=== PATIENT | female | born 1990 | race American Indian/Alaskan Native ===

== ENCOUNTER 2017-03-28 13:42 | Emergency (ER) | payer OTHER ==
[2017-03-28 16:35] LABS: Basophils % (Auto) 0.5 % (0.0-1.8); Eosinophils % (Auto) 0.3 % (0.0-4.3); Hematocrit 35.6 % (30.3-42.9); Hemoglobin 11.7 gm/dl (10.1-14.3); Lymphocytes # (Auto) 1.1 K/mm3 (1.2-5.4); Lymphocytes % (Auto) 18.2 % (13.4-35.0); Mean Corpuscular HGB Conc 33 % (30-34); Mean Corpuscular Volume 77 fl (79-97); Monocytes # (Auto) 0.5 K/mm3 (0.0-0.8); Monocytes % (Auto) 7.3 % (0.0-7.3); Platelet Count 226 K/mm3 (140-440); Red Blood Count 4.61 M/mm3 (3.65-5.03); Red Cell Distribution Width 13.9 % (13.2-15.2)
[2017-03-28 16:54] LABS: BUN/Creatinine Ratio 8; Blood Urea Nitrogen 5 mg/dL (7-17); Calcium 9.3 mg/dL (8.4-10.2); Hemolysis Index 8
[2017-03-28 16:56] LABS: Mean Corpuscular Hemoglobin 25 pg (28-32)
[2017-03-28 16:58] LABS: Bilirubin,Urine NEG (Negative); Blood,Urine NEG (Negative); Color,Urine Yellow (Yellow); Mucus,Urine 3+ /HPF; Nitrite,Urine NEG (Negative); Protein,Urine <15 mg/dL mg/dL (Negative)
[2017-03-28 17:10] LABS: Amphetamine Screen,Urine PRESUMPTIVE NEGATIVE; Benzodiazepines Screen,Urine PRESUMPTIVE NEGATIVE; Cannabinoid Screen,Urine PRESUMPTIVE NEGATIVE; Cocaine Screen,Urine PRESUMPTIVE NEGATIVE; Methadone Screen,Urine PRESUMPTIVE NEGATIVE; Opiate Screen,Urine PRESUMPTIVE NEGATIVE
[2017-03-29] MEDS ORDERED: XYLOCAINE 1% MPF 5 mL INFILTRATI ONE (00:29)
[2017-03-29] MEDS ORDERED: ROCEPHIN IM ONE (00:29)
--- NOTE | 2017-03-29 00:38 | Emergency Department Report ---
ED Psych HPI - General Chief Complaint: Psych Stated Complaint: PSYCHE 1013 Time Seen by Provider: 03/29/17 00:25 Source: patient, police Mode of arrival: Ambulatory - History of Present Illness Initial Comments: 26-year-old female seen and clean [facility] [address] this morning she is on current depression meds but was feeling suicidal. They referred her here on a 1013 for suicidal ideation worsening major depression for medical clearance patient has no medical complaints of fever no abdominal pain no headache no stiff neck, chest pain no missed periods or vaginal bleeding or vaginal discharge past medical history was stated to be significant for schizoaffective and bipolar as well as depression MD Complaint: suicidal ideation, feels depressed -: days(s), unknown Associated Psychiatric Symptoms: depression, suicidal ideation Associated Symptoms: denies other symptoms. denies: confusion, headache, shortness of breath, nausea, vomiting, syncope, insomnia If Self Harm: admits thoughts of - Related Data Home Medications Medication Instructions Recorded Confirmed Last Taken Ferrous Sulfate [Ferrous Sulfate] 1 tsp PO DAILY 05/21/13 03/28/17 06/29/13 09: 00 Previous Rx's Medication Instructions Recorded Last Taken Type Pnv95/Ferrous Fumarate/FA 1 each PO QDAY #30 tablet 12/21/12 06/29/13 09:00 Rx [ Vitamins] Ferrous Sulfate [Feosol 325 MG tab] 325 mg PO BID #60 tablet 07/03/13 Unknown Rx Ibuprofen [Motrin 600 MG tab] 600 mg PO Q6HR #30 tablet 07/03/13 Unknown Rx Vit-Fe Fumar-FA [ 1 each PO QDAY #30 tablet 07/03/13 Unknown Rx Vitamin] metroNIDAZOLE [Flagyl] 500 mg PO BID #14 tablet 07/03/13 Unknown Rx Ibuprofen [Motrin] 600 mg PO Q8H PRN #30 tablet 07/15/14 Unknown Rx Ondansetron [Zofran Odt] 4 mg PO Q6H #14 tab.rapdis 07/15/14 Unknown Rx traMADol [Ultram] 50 mg PO Q6HR PRN #20 tablet 07/15/14 Unknown Rx Allergies Allergy/AdvReac Type Severity Reaction Status Date / Time No Known Allergies Allergy Verified 08/06/15 17:53 ED Review of Systems ROS: Stated complaint: PSYCHE 1013 Other details as noted in HPI Comment: All other systems reviewed and negative Constitutional: no symptoms reported. denies: diaphoresis, fever, malaise, weakness ENT: denies: dental pain, hearing loss, epistaxis Respiratory: denies: shortness of breath, SOB with exertion, SOB at rest, stridor, wheezing Cardiovascular: denies: chest pain, palpitations, dyspnea on exertion, orthopnea , edema, syncope, paroxysmal nocturnal dyspnea Gastrointestinal: denies: abdominal pain, nausea, vomiting, diarrhea, constipation, hematemesis, melena, hematochezia Genitourinary: denies: hematuria, discharge, abnormal menses Musculoskeletal: denies: arthralgia, myalgia Neurological: denies: headache, weakness, numbness, paresthesias, abnormal gait , vertigo Psychiatric: as per HPI Hematological/Lymphatic: denies: easy bleeding ED Past Medical Hx - Past Medical History Previous Medical History?: Yes Hx Hypertension: No Hx Congestive Heart Failure: No Hx Diabetes: No Hx Deep Vein Thrombosis: No Hx Renal Disease: No Hx Sickle Cell Disease: No Hx Seizures: No Hx Psychiatric Treatment: Yes (schizoaffective, bipolar type) Hx Asthma: No Hx COPD: No Hx HIV: No Additional medical history: ovarian cyst - Surgical History Past Surgical History?: Yes Additional Surgical History: - Social History Smoking Status: Never Smoker Substance Use Type: None - Medications Home Medications: Home Medications Medication Instructions Recorded Confirmed Last Taken Type Pnv95/Ferrous Fumarate/FA 1 each PO QDAY #30 tablet 12/21/12 03/28/17 06/29/13 09:00 Rx [ Vitamins] Ferrous Sulfate [Ferrous Sulfate] 1 tsp PO DAILY 05/21/13 03/28/17 06/29/13 09: 00 History Ferrous Sulfate [Feosol 325 MG tab] 325 mg PO BID #60 tablet 07/03/13 03/28/17 Unknown Rx Ibuprofen [Motrin 600 MG tab] 600 mg PO Q6HR #30 tablet 07/03/13 03/28/17 Unknown Rx Vit-Fe Fumar-FA [ 1 each PO QDAY #30 tablet 07/03/13 03/28/17 Unknown Rx Vitamin] metroNIDAZOLE [Flagyl] 500 mg PO BID #14 tablet 07/03/13 03/28/17 Unknown Rx Ibuprofen [Motrin] 600 mg PO Q8H PRN #30 tablet 07/15/14 03/28/17 Unknown Rx Ondansetron [Zofran Odt] 4 mg PO Q6H #14 tab.rapdis 07/15/14 03/28/17 Unknown Rx traMADol [Ultram] 50 mg PO Q6HR PRN #20 tablet 07/15/14 03/28/17 Unknown Rx ED Physical Exam - General Limitations: No Limitations General appearance: alert, in no apparent distress, anxious - Head Head exam: Present: atraumatic, normocephalic - Eye Eye exam: Present: PERRL, EOMI - ENT ENT exam: Present: normal exam, normal orophraynx - Neck Neck exam: Present: normal inspection. Absent: tenderness, meningismus - Respiratory Respiratory exam: Present: normal lung sounds bilaterally. Absent: respiratory distress, wheezes, rales, rhonchi, stridor, chest wall tenderness, accessory muscle use, decreased breath sounds, prolonged expiratory - Cardiovascular Cardiovascular Exam: Present: regular rate, normal rhythm, normal heart sounds. Absent: systolic murmur, diastolic murmur, rubs, gallop - GI/Abdominal GI/Abdominal exam: Present: soft. Absent: distended, tenderness, guarding, rebound, rigid, mass, bruit, pulsatile mass - Extremities Exam Extremities exam: Present: normal inspection, normal capillary refill. Absent: pedal edema, joint swelling, calf tenderness - Back Exam Back exam: Present: normal inspection. Absent: CVA tenderness (R), CVA tenderness (L), muscle spasm, paraspinal tenderness, vertebral tenderness - Neurological Exam Neurological exam: Present: alert, oriented X3, CN II-XII intact. Absent: motor sensory deficit - Psychiatric Psychiatric exam: Present: depressed, anxious, flat affect, suicidal ideation ED Course Vital Signs 03/28/17 03/28/17 15:56 19:13 Temperature 98.3 F 99.1 F Pulse Rate 83 72 Respiratory 16 13 Rate Blood Pressure 123/77 Blood Pressure 116/70 [Left] O2 Sat by Pulse 100 100 Oximetry - Reevaluation(s) Reevaluation #1: 03/29/17 00:37 Medical clearance labs were obtained ED Medical Decision Making - Lab Data Result diagrams: 03/28/17 16:11 03/28/17 16:11 - Medical Decision Making Medical clearance labs unremarkable patient is awake and alert and oriented she was placed on a 1013 for major depression and suicidal ideation she will need mental health evaluation in the ED no medical complaints at this time stable for psychiatric admission Critical care attestation.: If time is entered above; I have spent that time in minutes in the direct care of this critically ill patient, excluding procedure time. ED Disposition Clinical Impression: Major depression, Suicidal ideation Disposition: DC/TX-65 PSY HOSP/PSY UNIT Is pt being admited?: No Condition: Stable Referrals: PRIMARY CARE, [Primary Care Provider] - 3-5 Days Time of Disposition: 00:39
--- NOTE | 2017-03-29 12:24 | Consultation ---
History of Present Illness - Reason for Consult Consult date: 03/29/17 Reason for consult: Mental Health Evaluation Requesting physician: BRENDA AMBRIZ - Chief Complaint Chief complaint: "I am depressed" - History of Present Psychiatric Illness 26 y.o. AA female presenting to [facility] for SI's. Today the patient is calm and cooperative during the assessment. She stated that she felt suicidal while she was attending sessions at [facility]. She stated that she would have overdosed on pills if given the chance. She stated that she usually experience command AH's, but denies at this time. She stated being depressed for several weeks, but cannot explain why. 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 She stated that she was recently discharged from [place], because of depression with a mental health dx of Schizoaffective DO. She sated that she used to receive the monthly Invega injection, last administration Jan 2017. She would not confirm or deny SI's when asked. She rate her depression 8/10, with 10 being the worse. She denies any past manic episodes in the past. She denies a poor appetite, but acknowledge erratic sleep. She denies recreational drug use and alcohol consumption (etoh). Medications and Allergies Allergies Allergy/AdvReac Type Severity Reaction Status Date / Time No Known Allergies Allergy Verified 08/06/15 17:53 Home Medications Medication Instructions Recorded Confirmed Last Taken Type Pnv95/Ferrous Fumarate/FA 1 each PO QDAY #30 tablet 12/21/12 03/28/17 06/29/13 09:00 Rx [ Vitamins] Ferrous Sulfate [Ferrous Sulfate] 1 tsp PO DAILY 05/21/13 03/28/17 06/29/13 09: 00 History Ferrous Sulfate [Feosol 325 MG tab] 325 mg PO BID #60 tablet 07/03/13 03/28/17 Unknown Rx Ibuprofen [Motrin 600 MG tab] 600 mg PO Q6HR #30 tablet 07/03/13 03/28/17 Unknown Rx Vit-Fe Fumar-FA [ 1 each PO QDAY #30 tablet 07/03/13 03/28/17 Unknown Rx Vitamin] metroNIDAZOLE [Flagyl] 500 mg PO BID #14 tablet 07/03/13 03/28/17 Unknown Rx Ibuprofen [Motrin] 600 mg PO Q8H PRN #30 tablet 07/15/14 03/28/17 Unknown Rx Ondansetron [Zofran Odt] 4 mg PO Q6H #14 tab.rapdis 07/15/14 03/28/17 Unknown Rx traMADol [Ultram] 50 mg PO Q6HR PRN #20 tablet 07/15/14 03/28/17 Unknown Rx Past psychiatric history - Past Medical History Past Medical History: other (Oavrian Cyst) Past Surgical History: No surgical history - past Psychiatric treatment and history psychiatric treatment history: Multiple inpatient psy setting at [place]. A fam hx of schizophrenia. - Social History Social history: lives with family Mental Status Exam - Vital signs Last Vital Signs Temp 99.1 F 03/28/17 19:13 Pulse 72 03/28/17 19:13 Resp 13 03/28/17 19:13 BP 116/70 03/28/17 19:13 Pulse Ox 100 03/28/17 19:13 - Exam Narrative exam: MSE: Appearance: calm, cooperative Behavior: regular eye contact Speech: regular rate and tone Mood: "depressed" Affect: flat Thought Process: circumstantial Thought Content: denies SI/HI's and AVH's Motor Activity: ambulatory Cognition: A/O x 3 Insight: variable Judgment: variable Results Result Diagrams: 03/28/17 16:11 03/28/17 16:11 Abnormal lab results 03/28/17 03/28/17 03/28/17 Range/Units 16:11 16:11 16:11 MCV 77 L (79-97) fl MCH 25 L (28-32) pg Lymph # 1.1 L (1.2-5.4) K/mm3 Seg Neutrophils % 73.7 H (40.0-70.0) % BUN 5 L (7-17) mg/dL Creatinine 0.6 L (0.7-1.2) mg/dL Salicylates < 0.3 L (2.8-20.0) mg/dL All other labs normal. Assessment and Plan Assessment and plan: Impression: Hx of Schizoaffective DO. Today the patient is calm and cooperative during the assessment. UDS is negative. DDx: R/O MDD, R/O Bipolar DO Recommendation/Plan: Continue 1013 with placement to inpatient psy services. Start Risperdal 0.5 mg PO HS for mood. Discussed possible metabolic side effects of Risperdal with patient.
[2017-03-29] MEDS: RisperDAL PO SCH (21:42)
--- NOTE | 2017-03-30 12:22 | Progress Note ---
Subjective - Reason for Consult Consult date: 03/30/17 Reason for consult: Psychitary Follow-up - Chief Complaint Chief complaint: "When can I leave" 26 y.o. AA female presenting to [facility] for SI's. Today the patient is calm and cooperative during the assessment. She stated that she spoke with her family over the phone and feel relieved that her kids are "okay." She stated that she would like to continue her outpatient psy services at [facility] when discharged. She denies SI/HI's and AVH's. She denies any side effects of her medication. Mental Status Exam - Vital signs Last Vital Signs Temp 98.4 F 03/30/17 11:28 Pulse 89 03/30/17 11:28 Resp 18 03/30/17 11:30 BP 104/68 03/30/17 11:28 Pulse Ox 100 03/30/17 11:30 - Exam Narrative exam: MSE: Appearance: calm, cooperative Behavior: regular eye contact Speech: regular rate and tone Mood: "okay" Affect: congruent to mood Thought Process: circumstantial Thought Content: denies SI/HI's and AVH's Motor Activity: ambulatory Cognition: A/O x 3 Insight: variable Judgment: variable Assessment and Plan Impression: Hx of Schizoaffective DO. Today the patient is calm and cooperative during the assessment. UDS is negative. DDx: R/O MDD, R/O Bipolar DO Recommendation/Plan: Continue 1013 with placement to inpatient psy services. Continue Risperdal 0.5 mg PO HS for mood. Discussed possible metabolic side effects of Risperdal with patient.
[2017-03-30] MEDS: RisperDAL PO SCH (22:30)
--- NOTE | 2017-03-31 18:32 | Progress Note ---
Subjective - Reason for Consult Consult date: 03/31/17 Reason for consult: follow up - Chief Complaint Chief complaint: "I'm the lowest I've ever been." 26 y.o. AA female presenting to [facility] for SI's. Today the patient is calm and cooperative during the assessment. She stated that she would like to continue her outpatient psy services at [facility] when discharged. She reports being very depressed and does not know how she will take care of her children being so depressed. She does not find her home medications effective, invega and celexa. She denies side effects to risperdal. She describes a history of manic symptoms in 2009. Mental Status Exam - Vital signs Last Vital Signs Temp 97.9 F 03/31/17 08:31 Pulse 77 03/31/17 08:31 Resp 18 03/31/17 08:31 BP 106/58 03/31/17 08:31 Pulse Ox 96 03/31/17 08:31 - Exam Narrative exam: MSE: Appearance: calm, cooperative Behavior: regular eye contact Speech: regular rate and tone Mood: depressed Affect: flat Thought Process: linear Thought Content: suicidal ideation Motor Activity: ambulatory Cognition: A/O x 3 Insight: variable Judgment: variable Assessment and Plan Impression: Hx of Schizoaffective DO. Today the patient is calm and cooperative during the assessment. UDS is negative. DDx: R/O MDD, R/O Bipolar DO Recommendation/Plan: Continue 1013 with placement to inpatient psy services. Increase Risperdal to 1 mg PO HS for mood. Discussed possible metabolic side effects of Risperdal with patient. Consider lithium
[2017-03-31] MEDS: RisperDAL PO SCH (22:29)
--- NOTE | 2017-04-01 15:21 | Progress Note ---
Subjective - Reason for Consult Consult date: 04/01/17 Reason for consult: follow up - Chief Complaint Chief complaint: "I'm better today." 26 y.o. AA female presenting to [facility] for SI's. Today the patient is calm and cooperative during the assessment. She stated that she would like to continue her outpatient psy services at [facility] when discharged. She reports being very depressed and does not know how she will take care of her children being so depressed. She does not find her home medications effective, invega and celexa. She denies side effects to risperdal increase. She reports sleeping well and eating today. She describes a history of manic symptoms in 2009. She misses her . Mental Status Exam - Vital signs Last Vital Signs Temp 98.0 F 04/01/17 08:11 Pulse 78 04/01/17 08:11 Resp 16 04/01/17 08:11 BP 113/59 04/01/17 08:11 Pulse Ox 100 04/01/17 08:11 - Exam Narrative exam: MSE: Appearance: calm, cooperative Behavior: regular eye contact Speech: regular rate and tone Mood: depressed Affect: flat Thought Process: linear Thought Content: she denies SI today. no HI. no psychotic symptoms Motor Activity: ambulatory Cognition: A/O x 3 Insight: variable Judgment: variable Assessment and Plan Impression: Hx of Schizoaffective DO. Today the patient is calm and cooperative during the assessment. UDS is negative. DDx: R/O MDD, R/O Bipolar DO Recommendation/Plan: Continue 1013 with placement to inpatient psy services. Increase Risperdal to 1 mg PO HS for mood. Discussed possible metabolic side effects of Risperdal with patient. [place] 300mg hs. potential side effects and adverse effects discussed.
[2017-04-01] MEDS ORDERED: ESKALITH PO SCH (22:00)
[2017-04-01] MEDS: RisperDAL PO SCH (22:53)
--- NOTE | 2017-04-02 11:02 | Progress Note ---
Subjective - Reason for Consult Consult date: 04/02/17 Reason for consult: Psychiatry Follow-up - Chief Complaint Chief complaint: "When can I leave" 26 y.o. AA female presenting to [facility] for SI's. Today the patient is calm and cooperative during the assessment. She stated that she does not know why she can become so depressed so "easily." She stated that she missed her family, but need to be "better mentally" so she can take care her kids when discharged home. She denies SI/HI's and AVH's. She denies any side effects of her medication. Mental Status Exam - Vital signs Last Vital Signs Temp 98 F 04/01/17 20:15 Pulse 77 04/02/17 03:00 Resp 20 04/01/17 20:15 BP 114/69 04/02/17 03:00 Pulse Ox 100 04/01/17 20:15 - Exam Narrative exam: MSE: Appearance: calm, cooperative Behavior: regular eye contact Speech: regular rate and tone Mood: "okay" withdrawn Affect: congruent to mood Thought Process: circumstantial Thought Content: denies SI/HI's and AVH's Motor Activity: ambulatory Cognition: A/O x 3 Insight: variable Judgment: variable Assessment and Plan Impression: Hx of Schizoaffective DO. Today the patient is calm and cooperative during the assessment. UDS is negative. DDx: R/O MDD, R/O Bipolar DO Recommendation/Plan: Continue 1013 with placement to [facility] pending transport time. Continue Risperdal 1 mg PO HS for mood and [place] 300 mg PO HS for mood. Discussed possible metabolic side effects of Risperdal with patient. Discussed possible side effects of [place] with patient.
[2017-04-02 16:07] VITALS: BP 105/76
== END 2017-04-02 15:15 ==
LOC: EEVIPCON 13:42 → ED 13:42
DX: F31.9 Bipolar disorder, unspecified (principal)
CPT/HCPCS: 36415; 80048; 80307; 81001; 84703; 85025; 96372; 99285; G0480; J0696; 80320

== ENCOUNTER 2017-04-23 12:41 | Emergency (ER) | payer MEDICAID, OTHER ==
[2017-04-23 13:25] LABS: Basophils % (Auto) 0.3 % (0.0-1.8); Eosinophils % (Auto) 0.4 % (0.0-4.3); Hematocrit 36.7 % (30.3-42.9); Hemoglobin 11.5 gm/dl (10.1-14.3); Lymphocytes # (Auto) 1.1 K/mm3 (1.2-5.4); Lymphocytes % (Auto) 21.8 % (13.4-35.0); Mean Corpuscular HGB Conc 31 % (30-34); Mean Corpuscular Volume 79 fl (79-97); Monocytes # (Auto) 0.4 K/mm3 (0.0-0.8); Monocytes % (Auto) 8.1 % (0.0-7.3); Platelet Count 228 K/mm3 (140-440); Red Blood Count 4.62 M/mm3 (3.65-5.03); Red Cell Distribution Width 14.9 % (13.2-15.2)
[2017-04-23 13:26] LABS: Mean Corpuscular Hemoglobin 25 pg (28-32)
[2017-04-23 13:39] LABS: Alanine Aminotransferase 8 units/L (7-56); Albumin 3.8 g/dL (3.9-5); BUN/Creatinine Ratio 10; Blood Urea Nitrogen 6 mg/dL (7-17); Calcium 8.9 mg/dL (8.4-10.2); Hemolysis Index 65
--- NOTE | 2017-04-23 13:41 | Emergency Department Report ---
ED Psych HPI - General Chief Complaint: Psych Stated Complaint: DEPRESSED Time Seen by Provider: 04/23/17 13:07 Source: patient, EMS Mode of arrival: Stretcher - History of Present Illness Initial Comments: This is a poorly communicative patient with a history of depression and I presume a throat disorder. She is currently on Invega monthly. The mental health counselor states that she is receiving care at the [facility]. She wrote a suicide note to her and her 2 children which she presents to the emergency department with. Apparently she stated that she was going to take an overdose of "6" ibuprofen PM tablets but actually did not take any. She is not expressing any complaints to me at this time. Patient denies any other symptoms on review. MD Complaint: suicidal ideation - Related Data Home Medications Medication Instructions Recorded Confirmed Last Taken Ferrous Sulfate 1 tsp PO DAILY 05/21/13 03/28/17 06/29/13 09:00 Previous Rx's Medication Instructions Recorded Last Taken Type Pnv95/Ferrous Fumarate/FA 1 each PO QDAY #30 tablet 12/21/12 06/29/13 09:00 Rx [ Vitamins] Ferrous Sulfate [Feosol 325 MG tab] 325 mg PO BID #60 tablet 07/03/13 Unknown Rx Ibuprofen [Motrin 600 MG tab] 600 mg PO Q6HR #30 tablet 07/03/13 Unknown Rx Vit-Fe Fumar-FA [ 1 each PO QDAY #30 tablet 07/03/13 Unknown Rx Vitamin] metroNIDAZOLE [Flagyl] 500 mg PO BID #14 tablet 07/03/13 Unknown Rx Ibuprofen [Motrin] 600 mg PO Q8H PRN #30 tablet 07/15/14 Unknown Rx Ondansetron [Zofran Odt] 4 mg PO Q6H #14 tab.rapdis 07/15/14 Unknown Rx traMADol [Ultram] 50 mg PO Q6HR PRN #20 tablet 07/15/14 Unknown Rx Allergies Allergy/AdvReac Type Severity Reaction Status Date / Time No Known Allergies Allergy Verified 08/06/15 17:53 ED Review of Systems ROS: Stated complaint: DEPRESSED Other details as noted in HPI Comment: Unobtainable due to pts medical conditions ED Past Medical Hx - Past Medical History Previous Medical History?: Yes Hx Hypertension: No Hx Congestive Heart Failure: No Hx Diabetes: No Hx Deep Vein Thrombosis: No Hx Renal Disease: No Hx Sickle Cell Disease: No Hx Seizures: No Hx Psychiatric Treatment: Yes (schizoaffective, bipolar type) Hx Asthma: No Hx COPD: No Hx HIV: No Additional medical history: ovarian cyst - Surgical History Past Surgical History?: Yes Additional Surgical History: - Social History Smoking Status: Unknown if ever smoked Substance Use Type: None (none known) - Medications Home Medications: Home Medications Medication Instructions Recorded Confirmed Last Taken Type Pnv95/Ferrous Fumarate/FA 1 each PO QDAY #30 tablet 12/21/12 03/28/17 06/29/13 09:00 Rx [ Vitamins] Ferrous Sulfate 1 tsp PO DAILY 05/21/13 03/28/17 06/29/13 09:00 History Ferrous Sulfate [Feosol 325 MG tab] 325 mg PO BID #60 tablet 07/03/13 03/28/17 Unknown Rx Ibuprofen [Motrin 600 MG tab] 600 mg PO Q6HR #30 tablet 07/03/13 03/28/17 Unknown Rx Vit-Fe Fumar-FA [ 1 each PO QDAY #30 tablet 07/03/13 03/28/17 Unknown Rx Vitamin] metroNIDAZOLE [Flagyl] 500 mg PO BID #14 tablet 07/03/13 03/28/17 Unknown Rx Ibuprofen [Motrin] 600 mg PO Q8H PRN #30 tablet 07/15/14 03/28/17 Unknown Rx Ondansetron [Zofran Odt] 4 mg PO Q6H #14 tab.rapdis 07/15/14 03/28/17 Unknown Rx traMADol [Ultram] 50 mg PO Q6HR PRN #20 tablet 07/15/14 03/28/17 Unknown Rx ED Physical Exam - General Limitations: No Limitations General appearance: alert, in no apparent distress - Head Head exam: Present: atraumatic, normocephalic - Eye Eye exam: Present: normal appearance, PERRL, EOMI. Absent: scleral icterus - ENT ENT exam: Present: mucous membranes moist - Neck Neck exam: Present: normal inspection. Absent: tenderness, meningismus - Respiratory Respiratory exam: Present: normal lung sounds bilaterally. Absent: respiratory distress - Cardiovascular Cardiovascular Exam: Present: regular rate, normal rhythm. Absent: systolic murmur, diastolic murmur, rubs, gallop - GI/Abdominal GI/Abdominal exam: Present: soft, normal bowel sounds. Absent: distended, tenderness, guarding, rebound, rigid - Extremities Exam Extremities exam: Present: normal inspection - Back Exam Back exam: Present: normal inspection - Neurological Exam Neurological exam: Present: alert, oriented X3, CN II-XII intact. Absent: motor sensory deficit - Psychiatric Psychiatric exam: Present: normal mood, flat affect - Skin Skin exam: Present: warm, dry, intact, normal color. Absent: rash ED Course Vital Signs 04/23/17 12:57 Temperature 98.4 F Pulse Rate 80 Respiratory 16 Rate Blood Pressure 130/77 O2 Sat by Pulse 100 Oximetry ED Medical Decision Making - Lab Data Result diagrams: 04/23/17 13:13 Laboratory Results - last 24 hr 04/23/17 04/23/17 04/23/17 13:13 13:13 13:13 WBC 5.0 RBC 4.62 Hgb 11.5 Hct 36.7 MCV 79 MCH 25 L MCHC 31 RDW 14.9 Plt Count 228 Lymph % (Auto) 21.8 [place] % (Auto) 8.1 H Eos % (Auto) 0.4 Baso % (Auto) 0.3 Lymph # 1.1 L [place]y # 0.4 Eos # 0.0 Baso # 0.0 Seg Neutrophils % 69.4 Seg Neutrophils # 3.4 Sodium Potassium Chloride Carbon Dioxide Anion Gap BUN Creatinine Estimated GFR BUN/Creatinine Ratio Glucose Calcium Total Bilirubin Direct Bilirubin AST ALT Alkaline Phosphatase Total Protein Albumin Albumin/Globulin Ratio Salicylates < 0.3 L Plasma/Serum Alcohol < 0.01 04/23/17 13:13 WBC RBC Hgb Hct MCV MCH MCHC RDW Plt Count Lymph % (Auto) [place] % (Auto) Eos % (Auto) Baso % (Auto) Lymph # [place]ancey # Eos # Baso # Seg Neutrophils % Seg Neutrophils # Sodium 138 Potassium 4.5 Chloride 100.4 Carbon Dioxide 24 Anion Gap 18 BUN 6 L Creatinine 0.6 L Estimated GFR > 60 BUN/Creatinine Ratio 10 Glucose 88 Calcium 8.9 Total Bilirubin 0.20 Direct Bilirubin < 0.2 AST 14 ALT 8 Alkaline Phosphatase 71 Total Protein 7.5 Albumin 3.8 L Albumin/Globulin Ratio 1.0 Salicylates Plasma/Serum Alcohol Critical care attestation.: If time is entered above; I have spent that time in minutes in the direct care of this critically ill patient, excluding procedure time. ED Disposition Clinical Impression: Suicidal ideation Depression Qualifiers: Depression Type: major depressive disorder Major depression recurrence: recurrent Active/Remission status: currently active Major depression episode severity: severe Psychotic features: with psychotic features Qualified Code(s): F33.3 - Major depressive disorder, recurrent, severe with psychotic symptoms Disposition: DC/TX-65 PSY HOSP/PSY UNIT Is pt being admited?: No Does the pt Need Aspirin: No Condition: Stable Time of Disposition: 13:54
[2017-04-23 13:43] LABS: Bilirubin,Direct < 0.2 mg/dL (0-0.2)
[2017-04-23] MEDS ORDERED: ALUM-MAG HYDROX-SIMETH 200-200-20MG/5ML PO PRN (13:55)
[2017-04-23] MEDS ORDERED: TYLENOL PO PRN (13:55)
[2017-04-23] MEDS ORDERED: MILK OF MAGNESIA PO PRN (13:55)
[2017-04-23 20:18] LABS: Bacteria,Urine 1+ /HPF (Negative); Bilirubin,Urine NEG (Negative); Blood,Urine NEG (Negative); Color,Urine Yellow (Yellow); Mucus,Urine 3+ /HPF; Protein,Urine <15 mg/dL mg/dL (Negative)
[2017-04-23 20:26] LABS: HCG Qualitative,Urine Negative (Negative)
[2017-04-23 20:29] LABS: Amphetamine Screen,Urine PRESUMPTIVE NEGATIVE; Benzodiazepines Screen,Urine PRESUMPTIVE NEGATIVE; Cannabinoid Screen,Urine PRESUMPTIVE NEGATIVE; Cocaine Screen,Urine PRESUMPTIVE NEGATIVE; Methadone Screen,Urine PRESUMPTIVE NEGATIVE; Opiate Screen,Urine PRESUMPTIVE NEGATIVE
--- NOTE | 2017-04-24 17:10 | Consultation ---
History of Present Illness - Reason for Consult Consult date: 04/24/17 Reason for consult: Mental Health Evaluation Requesting physician: KERRY RIDER - Chief Complaint Chief complaint: "I am tired of feeling this way" - History of Present Psychiatric Illness 26 y.o. AA female presenting to [facility] for depression and SI's. This patient is known to me. Today the patient is calm and cooperative during the assessment. She stated that she wrote a letter to her about wanting to kill herself. She stated that her plans were to take multiple pills to "." She admitted being suicidal because she feel like she isn't a good mother. The patient has a hx of Schizoaffective DO and receive the monthly Invega injection , last admin Jan 2017. She stated that her sleep has been erratic she acknowledged that she has lost 20 lbs because of a poor appetite. She stated hearing "sometimes" and rate her depression 8/10, with 10 being the worse. She denies HI's and VH's. She denies recreational drug use and alcohol consumption ( etoh). Medications and Allergies Allergies Allergy/AdvReac Type Severity Reaction Status Date / Time No Known Allergies Allergy Verified 08/06/15 17:53 Home Medications Medication Instructions Recorded Confirmed Last Taken Type Duloxetine HCl [Cymbalta] 20 mg PO DAILY 04/24/17 Unknown History Paliperidone [Invega] 1.5 mg PO QAM 04/24/17 Unknown History Active Meds: Active Medications Acetaminophen (Tylenol) 650 mg PO Q4HR PRN PRN Reason: Pain MILD(1-3)/Fever >100.5/KHANNA Al Hydrox/Mg Hydrox/Simethicone (Alum-Mag Hydrox-Simeth [phone]/5ml) 30 ml PO Q4HR PRN PRN Reason: Indigestion Magnesium Hydroxide (Milk Of Magnesia) 30 ml PO Q12HR PRN PRN Reason: Constipation Past psychiatric history - Past Medical History Past Medical History: other (Ovarian Csyt) Past Surgical History: No surgical history - past Psychiatric treatment and history psychiatric treatment history: Multiple inpatient psy services. Denies a fam psy hx. - Social History Social history: lives with family Mental Status Exam - Vital signs Last Vital Signs Temp 98 F 04/24/17 09:00 Pulse 95 H 04/24/17 09:00 Resp 18 04/24/17 09:00 BP 115/71 04/24/17 09:00 Pulse Ox 99 04/24/17 09:00 - Exam Narrative exam: MSE: Appearance: calm, cooperative Behavior: regular eye contact Speech: regular rate and tone Mood: "depressed" Affect: flat Thought Process: circumstantial Thought Content: denies HI's and VH's, intermittent AH's Motor Activity: ambulatory Cognition: A/O x 3 Insight: variable Judgment: variable Results Result Diagrams: 04/23/17 13:13 04/23/17 13:13 All other labs normal. Assessment and Plan Assessment and plan: Impression: Hx of Schizoaffective DO. Today the patient is calm and cooperative during the assessment. UDS is negative. DDx: R/O MDD, R/O Bipolar DO Recommendation/Plan: Continue 1013 with placement to inpatient psy services. Start Seroquel 200 mg PO HS for mood/psychosis. Discussed possible metabolic side effects of Seroquel with patient.
--- NOTE | 2017-04-26 15:05 | Progress Note ---
Subjective - Reason for Consult Consult date: 04/26/17 Reason for consult: Psychiatry Follow-up - Chief Complaint Chief complaint: "I want to be a better mother" 26 y.o. AA female presenting to [facility] for depression and SI's. This patient is known to me. Today the patient is calm and cooperative during the assessment. She stated that she want to be a better mother for her kids. She feels that her mental illness prevent her from being the "best mom" she can be. She stated that her SI's "come and go." She denies HI's and AVH's. She denies any side effects of her medication. Mental Status Exam - Vital signs Last Vital Signs Temp 98.3 F 04/24/17 19:40 Pulse 84 04/25/17 09:15 Resp 16 04/25/17 09:15 BP 108/75 04/25/17 09:15 Pulse Ox 99 04/25/17 09:15 - Exam Narrative exam: MSE: Appearance: calm, cooperative Behavior: regular eye contact Speech: regular rate and tone Mood: "a little depressed" withdrawn Affect: flat Thought Process: circumstantial Thought Content: denies HI's and VH's Motor Activity: ambulatory Cognition: A/O x 3 Insight: variable Judgment: variable Assessment and Plan Impression: Hx of Schizoaffective DO. Today the patient is calm and cooperative during the assessment. UDS is negative. DDx: R/O MDD, R/O Bipolar DO Recommendation/Plan: Continue 1013 with placement to inpatient psy services. Continue Seroquel 200 mg PO HS for mood/psychosis. Discussed possible metabolic side effects of Seroquel with patient.
--- NOTE | 2017-04-27 17:47 | Progress Note ---
Subjective - Reason for Consult Consult date: 04/27/17 Reason for consult: psychiatric follow-up - Chief Complaint Chief complaint: "Yesterday was not so good" 26 y.o. AA female presenting to [facility] for depression and SI's. Today the patient stated that she had a bad day yesterday but has been feeling better today. Patient reported that she was able to eat well today "after many months ". She continues to endorse depressed mood and continued suicidal ideations though "not as much". She denied any current homicidal ideations and denied any auditory or visual hallucinations. She denies any side effects to current medications. Mental Status Exam - Vital signs Last Vital Signs Temp 98.7 F 04/26/17 19:48 Pulse 80 04/26/17 19:48 Resp 16 04/26/17 19:48 BP 103/67 04/26/17 19:48 Pulse Ox 98 04/26/17 19:48 - Exam Narrative exam: MSE: Appearance: calm, cooperative Behavior: regular eye contact Speech: regular rate and tone Mood: Depressed Affect: flat Thought Process: circumstantial Thought Content: denies HI's and VH's Motor Activity: ambulatory Cognition: A/O x 3 Insight: variable Judgment: variable Assessment and Plan Assessment and Plan Impression: Hx of Schizoaffective DO. Today the patient was calm and cooperative during the assessment. DDx: R/O MDD, R/O Bipolar DO Recommendation/Plan: Continue 1013 with placement to inpatient psy services. Continue Seroquel 200 mg PO HS for mood/psychosis. Discussed possible metabolic side effects of Seroquel with patient.
[2017-04-30 08:52] VITALS: BP 112/78
--- NOTE | 2017-04-30 11:05 | Progress Note ---
Subjective - Reason for Consult Consult date: 04/30/17 Reason for consult: Psychiatry Follow-up - Chief Complaint Chief complaint: "I need to go to a hospital" 26 y.o. AA female presenting to [facility] for depression and SI's. This patient is known to me. Today the patient is calm and cooperative during the assessment. She stated that she need to be "inpatient" to get stabilized (mental health). She stated that the SI's "come and go." She denies HI's and AVH's. She denies any side effects of her medications. Mental Status Exam - Vital signs Last Vital Signs Temp 98 F 04/29/17 20:40 Pulse 72 04/30/17 08:51 Resp 18 04/30/17 08:51 BP 112/78 04/30/17 08:51 Pulse Ox 97 04/30/17 08:51 - Exam Narrative exam: MSE: Appearance: calm, cooperative Behavior: regular eye contact Speech: regular rate and tone Mood: "depressed" Affect: flat Thought Process: circumstantial Thought Content: denies HI's and AVH's Motor Activity: ambulatory Cognition: A/O x 3 Insight: variable Judgment: variable Assessment and Plan Impression: Hx of Schizoaffective DO. Today the patient is calm and cooperative during the assessment. UDS is negative. DDx: R/O MDD, R/O Bipolar DO Recommendation/Plan: Continue 1013 with placement to [facility] today.
--- NOTE | 2017-04-30 23:55 | Progress Note ---
Subjective - Reason for Consult Consult date: 04/28/17 Reason for consult: Psychiatric Follow-up Evaluation - Chief Complaint Chief complaint: "I've been up and down" Linda is a 26 year old female presenting to [facility] for depression and SI's. Today, she states " The depression is still there. The medication may needs to be lower. I've been drowsy and tired." Although, patient reports less depressed mood she continues to endorse intermittent suicidal ideations with plan to overdose on pills. Patient is medication compliant. She reports " drowsiness." Mental Status Exam - Vital signs Last Vital Signs Temp 98 F 04/29/17 20:40 Pulse 72 04/30/17 08:51 Resp 18 04/30/17 08:51 BP 112/78 04/30/17 08:51 Pulse Ox 97 04/30/17 08:51 - Exam Narrative exam: General Appearance: hospital gown Attitude/Behavior: Cooperative but guarded Sensorium: Clear Orientation: Alert and oriented x 3 Mood: "Still depressed" Affect: Constricted Speech/Language: Slow Thought Process: Organized but circumstantial Thought Content: Impoverished Perception: WNL Concentration/Attention: Impaired Suicidal Ideation/Plan: + " To take pills" Homicidal Ideation/Plan: "No" Assessment and Plan Hx of Schizoaffective DO. Today, patient presents calm, cooperative, and compliant. She endorses depressed mood and SI with plan to overdose on pills. Although patient is compliant with medication she reports "drowsiness" as a side effect. DDx: R/O MDD, R/O Bipolar DO Recommendation/Plan: 1. Continue 1013 with placement to inpatient psychiatric services. 2. Increase Seroquel 300 mg PO HS for mood/psychosis. Discussed medications' indication, frequency, and side effects. Provider explained to patient as the dosage of Seroquel increases the less sedating properties the medication exhibit.
--- NOTE | 2017-05-01 23:30 | Progress Note ---
Subjective - Reason for Consult Consult date: 04/25/17 Reason for consult: Psychiatric Follow-up Evaluation - Chief Complaint Chief complaint: "Depressed" Linda is a 26 year old female presenting to [facility] for depression and SI's. Today, she states " I'm depressed. I don't want to live anymore. I am here because I wanted to commit suicide by taking pills. I just want to be happy again." She reports appropriate sleep and appetite. She endorses SI with plan to overdose. She denies A/V and delusions. Patient is compliant with medications. There is no indications of side effects. Mental Status Exam - Vital signs Last Vital Signs Temp 98 F 04/29/17 20:40 Pulse 72 04/30/17 08:51 Resp 18 04/30/17 08:51 BP 112/78 04/30/17 08:51 Pulse Ox 97 04/30/17 08:51 - Exam Narrative exam: General Appearance: Hospital gown Attitude/Behavior: Cooperative Eye Contact: Intermittent Sensorium: Clear Orientation: Alert and oriented x 3 (person, place, and time) Mood: "Depressed" Affect: Constricted Speech/Language: Slow Thought Process: Organized but circumstantial Thought Content: Impoverished Perception: WNL- Patient denies Concentration/Attention: Impaired Suicidal Ideation/Plan: + with plan to "overdose" Homicidal Ideation/Plan: "No" Assessment and Plan Assessment and plan: Impression: Hx of Schizoaffective DO. Today the patient presents depressed with suicidal ideations/plan to overdose. Patient expressed that she no longer wants to live anymore. She denies HI, A/VH, and delusions. DDx: R/O MDD, R/O Bipolar DO Recommendation/Plan: 1. Continue 1013 with placement to inpatient psy services. 2. Continue Seroquel 200 mg PO HS for mood/psychosis. 3. Discussed possible metabolic side effects of Seroquel with patient.
== END 2017-04-30 08:51 ==
LOC: EEVIPCON 12:41 → ED 12:41
DX: F31.9 Bipolar disorder, unspecified (principal); F20.9 Schizophrenia, unspecified
CPT/HCPCS: 36415; 80048; 80074; 80307; 81001; 81025; 85025; 99285; G0480; 80320